=== PATIENT | female | born 1995 ===

== ENCOUNTER 2019-03-25 16:05 | Emergency (ER) | payer SELFPAY ==
[2019-03-25 16:19] VITALS: PULSE 84; RESP 19; TEMP 98.4; O2SAT 99
[2019-03-25] MEDS ORDERED: Tdap Vaccine 0.5 ml Vial (10-64 yrs) IM ONE ×2 (16:55→17:04)
--- NOTE | 2019-03-25 17:10 | ED PDOC ---
HPI: General Adult Time Seen by Provider: 03/25/19 16:43 Chief Complaint (Nursing): Headache Chief Complaint (Provider): Headache History Per: Patient History/Exam Limitations: no limitations Onset/Duration Of Symptoms: Hrs Additional Complaint(s): 23 y/o female presents to the ED for an evaluation. Patient state she struck her head in the shower today and did feel dizzy so decided to come to the ER for an evaluation. She reports she felt the pain radiating to her ear. Patient denies any lo9ss of consciousness. [facility] #[id number] PMD: [email or web address] Painter Past Medical History Reviewed: Historical Data, Nursing Documentation, Vital Signs Vital Signs: Last Vital Signs Temp 98.4 F 03/25/19 16:16 Pulse 84 03/25/19 16:16 Resp 19 03/25/19 16:16 BP 147/93 H 03/25/19 16:16 Pulse Ox 99 03/25/19 16:16 Primary Care Provider: Non [facility] Provider, - Medical History PMH: Anemia - Family History Family History: States: No Known Family Hx - Allergies Allergies/Adverse Reactions: Allergies Allergy/AdvReac Type Severity Reaction Status Date / Time No Known Allergies Allergy Verified 03/25/19 16:18 Review of Systems Neurological: Positive for: Dizziness. Negative for: Other (No loss of consciousness. ) Physical Exam - Reviewed Nursing Documentation Reviewed: Yes Vital Signs Reviewed: Yes - Physical Exam Appears: Positive for: Well, Non-toxic, No Acute Distress Head Exam: Positive for: ATRAUMATIC, NORMAL INSPECTION (Small abrasion on superior scalp.), NORMOCEPHALIC Skin: Positive for: Normal Color, Warm, Dry Eye Exam: Positive for: EOMI, Normal appearance, PERRL ENT: Positive for: Normal ENT Inspection Neck: Positive for: Normal, Painless ROM, Supple Cardiovascular/Chest: Positive for: Regular Rate, Rhythm. Negative for: Murmur Respiratory: Positive for: Normal Breath Sounds. Negative for: Wheezing Gastrointestinal/Abdominal: Positive for: Normal Exam, Soft. Negative for: Tenderness Back: Positive for: Normal Inspection. Negative for: L CVA Tenderness, R CVA Tenderness Extremity: Positive for: Normal ROM Neurological/Psych: Positive for: Awake, Alert, Normal Tone, Oriented (x3). Negative for: Gait, Motor/Sensory Deficits - ECG O2 Sat by Pulse Oximetry: 99 - Progress ED Course And Treament: patient declined tylenol Medical Decision Making Medical Decision Making: Time:1654 Impression: Plan: -Adacel 0.5ml -Tylenol 975mg PO 1705: Discuss patient about the pros and cons of CT head. Patient states she doesn't not have much of a headache and decline a CT head. Patient will return if has worsening symptoms. Will give tetanus and give wound cleaning. Scribe Attestation: Documented by Isis Cortez, acting as a scribe for Ada Aquino. Provider Scribe Attestation: All medical record entries made by the Scribe were at my direction and personally dictated by me. I have reviewed the chart and agree that the record accurately reflects my personal performance of the history, physical exam, medical decision making, and the department course for this patient. I have also personally directed, reviewed, and agree with the discharge instructions and disposition. Disposition - Clinical Impression Clinical Impression: Closed head injury - Patient ED Disposition Is Patient to be Admitted: No - Disposition Referrals: [facility] [Outside] Disposition: Routine/Home Disposition Time: 17:19 Condition: FAIR Additional Instructions: PUEDE ALESIA ACETAMINOPHEN O IBUPROFEN PARA DOLOR SI TIENE. Instructions: Closed Head Injury Print Language: ICELANDIC
[2019-03-25 17:47] VITALS: BP 132/74
== END 2019-03-25 17:20 | disposition home or self-care (01) ==
LOC: H.ER 16:05
DX: S09.90XA Unspecified injury of head, initial encounter (principal); Z23 Encounter for immunization; W22.8XXA Striking against or struck by other objects, initial encounter; Y92.002 Bathroom of unspecified non-institutional (private) residence as the place of occurrence of the external cause

== ENCOUNTER 2019-04-02 19:04 | Emergency (ER) | payer SELFPAY ==
[2019-04-02] MEDS ORDERED: Sodium Chloride 0.9% 1,000 ML IV STA (22:01)
[2019-04-02 22:10] VITALS: RESP 18
[2019-04-03 00:20] LABS: BASO # 0.1 K/uL (0.0-0.2); BASO % 0.3 % (0.0-2.0); EOS # 0.2 K/uL (0.0-0.7); EOS % 0.9 % (0.0-4.0); HEMOGLOBIN 13.3 g/dL (12.0-16.0); LYMPH # 1.8 K/uL (1.0-4.3); LYMPH % 10.4 % (20.0-40.0); MEAN CELL VOLUME 85.1 fl (81.0-99.0); MEAN CORPUSCULAR HEMOGLOBIN 28.9 pg (27.0-31.0); MEAN PLATELET VOLUME 8.9 fl (7.2-11.7); MONO # 1.2 K/uL (0.0-0.8); NEUT # 14.3 K/uL (1.8-7.0); NEUT % 81.4 % (50.0-75.0); RBC 4.62 Mil/uL (3.80-5.20); WHITE BLOOD COUNT 17.5 K/uL (4.8-10.8)
[2019-04-03 00:30] LABS: ALB/GLOB RATIO 1.2 (1.0-2.1); ALBUMIN 4.2 g/dL (3.5-5.0); ALT/SGPT 41 U/L (9-52); AST/SGOT 38 U/L (14-36); BLOOD UREA NITROGEN 11 mg/dl (7-17); CALCIUM 8.9 mg/dL (8.4-10.2); GFR NON-AFRICAN AMERICAN > 60
--- NOTE | 2019-04-03 01:49 | ED PDOC ---
HPI: Hypertension/Hypotension Time Seen by Provider: 04/02/19 21:41 Chief Complaint (Nursing): High Blood Pressure Chief Complaint (Provider): Dizziness, headache History Per: Patient History/Exam Limitations: no limitations Onset/Duration Of Symptoms: Days Current Symptoms Are (Timing): Still Present Additional Complaint(s): 23 yo female with no medical problems presents for evaluation of dizziness and headache. PT states she has been feeling dizzy for 1 week which she describes at lightheadedness. PT states it was before she was seen for head injury. PT also reports not feeling well. PT is concerned about high blood pressure because her mother has HTN. PT denies sore throat, neck pain, cough, urinary complaints, abdominal pain. PT also reports some nausea at home. Past Medical History Reviewed: Historical Data, Nursing Documentation, Vital Signs Vital Signs: Last Vital Signs Temp 98.8 F 04/02/19 22:09 Pulse 93 H 04/02/19 22:09 Resp 18 04/02/19 22:09 BP 136/70 04/02/19 22:09 Pulse Ox 98 04/02/19 22:09 Primary Care Provider: Alysa Cooper - Medical History PMH: Anemia - Surgical History Surgical History: No Surg Hx - Family History Family History: States: No Known Family Hx - Living Arrangements Living Arrangements: With Family - Allergies Allergies/Adverse Reactions: Allergies Allergy/AdvReac Type Severity Reaction Status Date / Time corn Allergy RASH Verified 04/02/19 19:59 peanut Allergy RASH Verified 04/02/19 19:59 shrimp Allergy VOMITING Verified 04/02/19 19:59 Review of Systems ROS Statement: Except As Marked, All Systems Reviewed And Found Negative Constitutional: Negative for: Fever, Chills Cardiovascular: Negative for: Chest Pain, Palpitations Respiratory: Negative for: Cough, Shortness of Breath Gastrointestinal: Positive for: Nausea. Negative for: Vomiting, Abdominal Pain Skin: Negative for: Rash, Lesions Neurological: Positive for: Headache, Dizziness. Negative for: Confusion, Seizures, Altered Mental Status Physical Exam - Reviewed Nursing Documentation Reviewed: Yes Vital Signs Reviewed: Yes - Physical Exam Appears: Positive for: Well, Non-toxic, No Acute Distress Head Exam: Positive for: ATRAUMATIC, NORMAL INSPECTION, NORMOCEPHALIC Skin: Positive for: Normal Color, Warm, DRY Eye Exam: Positive for: Normal appearance ENT: Positive for: Normal ENT Inspection, Pharynx Is, TM Is/Are, Sinus Pain/Drainage Neck: Positive for: Normal, Painless ROM, Supple. Negative for: Decreased ROM Cardiovascular/Chest: Positive for: Regular Rate, Rhythm Respiratory: Positive for: Normal Breath Sounds. Negative for: Accessory Muscle Use, Respiratory Distress Gastrointestinal/Abdominal: Positive for: Normal Exam. Negative for: Bowel Sounds, Soft, Tenderness Back: Positive for: Normal Inspection. Negative for: L CVA Tenderness, R CVA Tenderness Extremity: Positive for: Normal ROM. Negative for: Deformity Neurological/Psych: Positive for: Awake, Alert, Normal Tone - Laboratory Results Result Diagrams: 04/03/19 00:12 04/03/19 00:12 Lab Results: Total Bilirubin 0.4 mg/dl (0.2-1.3) 04/03/19 00:12 AST 38 U/L (14-36) H 04/03/19 00:12 ALT 41 U/L (9-52) 04/03/19 00:12 Alkaline Phosphatase 73 U/L (38-126) 04/03/19 00:12 Total Protein 7.7 G/DL (6.3-8.2) 04/03/19 00:12 Albumin 4.2 g/dL (3.5-5.0) 04/03/19 00:12 Globulin 3.5 gm/dL (2.2-3.9) 04/03/19 00:12 Albumin/Globulin Ratio 1.2 (1.0-2.1) 04/03/19 00:12 - ECG O2 Sat by Pulse Oximetry: 98 Pulse Ox Interpretation: Normal Medical Decision Making Medical Decision Making: Pt reports feeling much better on re-evaluation. Discussed WBC with patient and return precautions. Disposition - Clinical Impression Clinical Impression: Lightheadedness - Patient ED Disposition Is Patient to be Admitted: No Counseled Patient/Family Regarding: Diagnosis, Need For Followup - Disposition Disposition: Routine/Home Disposition Time: 01:54 Condition: GOOD Instructions: Dizziness, Nonvertigo, (DC) Print Language: PASHTO
--- NOTE | 2019-04-03 07:15 | CT ---
Date of service: 04/02/2019 PROCEDURE: CT HEAD WITHOUT CONTRAST. HISTORY: headache, dizziness COMPARISON: None available. TECHNIQUE: Axial computed tomography images were obtained through the head/brain without intravenous contrast. Radiation dose: Total exam DLP = 760.0 mGy-cm. This CT exam was performed using one or more of the following dose reduction techniques: Automated exposure control, adjustment of the mA and/or kV according to patient size, and/or use of iterative reconstruction technique. FINDINGS: HEMORRHAGE: No intracranial hemorrhage. BRAIN: No mass effect or edema. No atrophy or chronic microvascular ischemic changes. VENTRICLES: Unremarkable. No hydrocephalus. CALVARIUM: Unremarkable. PARANASAL SINUSES: Unremarkable as visualized. No significant inflammatory changes. MASTOID AIR CELLS: Unremarkable as visualized. No inflammatory changes. OTHER FINDINGS: None. IMPRESSION: No evidence of acute intracranial hemorrhage mass effect or midline shift. Preliminary report was submitted by [facility] Radiology contains concordant findings.
[2019-04-03 08:41] VITALS: BP 132/74; PULSE 89; TEMP 98.7; O2SAT 99
== END 2019-04-03 02:15 | disposition home or self-care (01) ==
LOC: H.ER 19:04
DX: R42 Dizziness and giddiness (principal); D64.9 Anemia, unspecified
CPT/HCPCS: 70450; 80053; 81025; 82948; 84443; 85025; 99285; J7030